=== PATIENT | male | born 1985 | race Caucasian/White ===

== ENCOUNTER 2020-06-19 11:11 | Emergency (ER) | payer OTHER | END 2020-06-19 14:24 | disposition home or self-care (01) | LOC: JVIRT 11:11 | DX: Z11.59 Encounter for screening for other viral diseases (principal) | CPT/HCPCS: C9803; Q3014-GT; U0003 ==

== ENCOUNTER 2020-10-02 12:53 | Emergency (ER) | payer OTHER | END 2020-10-02 13:58 | disposition home or self-care (01) | LOC: JVIRT 12:53 | DX: Z11.52 Encounter for screening for COVID-19 (principal) | CPT/HCPCS: C9803; G2251-GT; Q3014-GT; U0003 ==

== ENCOUNTER 2020-11-05 12:55 | Emergency (ER) | payer OTHER ==
[2020-11-06 08:06] LABS: SARS-CoV-2 NAA Not Detected (Not Detected)
== END 2020-11-05 13:58 | disposition home or self-care (01) ==
LOC: JVIRT 12:55
DX: Z11.52 Encounter for screening for COVID-19 (principal)
CPT/HCPCS: C9803; G2251-GT; Q3014-GT; U0003; U0005